=== PATIENT | female | born 1980 | race Caucasian/White ===

== ENCOUNTER 2020-11-12 14:28 | Emergency (ER) | payer BC ==
--- NOTE | 2020-11-12 15:56 | EDM.PDOC ---
ED HPI GENERAL MEDICAL PROBLEM - General Chief Complaint: Lower Extremity Injury/Pain Stated Complaint: FELL DOWN THE STEPS Time Seen by Provider: 11/12/20 14:35 Source of Information: Reports: Patient History Limitations: Reports: No Limitations - History of Present Illness INITIAL COMMENTS - FREE TEXT/NARRATIVE: HISTORY AND PHYSICAL: History of present illness: Patient is a 40-year-old female who presents to the ED today with concern of right ankle injury that occurred just prior to arrival to the emergency room. Patient states that she was doing laundry and was carrying a basket and missed the last 2 steps at the bottom of her stairs. Patient states she twisted her right ankle and states that she caught herself on the door. Patient states that since then she has had pain bearing weight on her right ankle so came to the emergency room for further evaluation. Patient denies any loss of consciousness or any other associated symptoms. Patient denies fever, chills, chest pain, shortness of breath, or cough. Denies headache, neck stiff ness, change in vision, syncope, or near syncope. Denies nausea, vomiting, abdominal pain, diarrhea, constipation, or dysuria. Has not noted any blood in urine or stool. Patient has been eating and drinking appropriately. Review of systems: As per history of present illness and below otherwise all systems reviewed and negative. Past medical history: As per history of present illness and as reviewed below otherwise noncontributory. Surgical history: As per history of present illness and as reviewed below otherwise n oncontributory. Social history: See social history for further information Family history: As per history of present illness and as reviewed below otherwise noncontributory. Physical exam: General: Patient is alert, oriented, and in no acute distress. Patient sitting comfortably on exam table. Vitals stable and reviewed by me. HEENT: Atraumatic, normocephalic, pupils equal and reactive bilaterally, negative for conjunctival pallor or scleral icterus, mucous membranes moist, TMs normal bilaterally, throat clear, neck supple, nontender, trachea midline. No drooling or trismus noted. No meningeal signs. No hot potato voice noted. Lungs: Clear to auscultation, breath sounds equal bilaterally, chest nontender. Heart: S1S2, regular rate and rhythm without overt murmur Abdomen: Soft, nondistended, nontender. Negative for masses or hepatosplenomegaly. Negative for costovertebral tenderness. Pelvis: Stable nontender. Genitourinary: Deferred. Rectal: Deferred. Skin: Intact, warm, dry. No lesions or rashes noted. Extremities: Patient does have edema noted to the right ankle with pain to palpation of the lateral malleolus on the right ankle. Patient does have full range of motion of the right hip and knee and digits of the right lower extremity. Dorsalis pedis and posterior tibial pulses are grossly intact of the right lower extremity with capillary refill less than 2 seconds. Patient does have intact sensation to light and deep touch of the right lower extremity. All compartments are soft of the right lower extremity. Otherwise, atraumatic, negative for cords or calf pain. Neurovascular unremarkable. Neuro: Awake, alert, oriented. Cranial nerves II through XII unremarkable. Cerebellum unremarkable. Motor and sensory unremarkable throughout. Exam nonfocal. Notes: Signs and symptoms are prompt return to the ED thoroughly discussed with patient. Discussed importance for follow-up with an orthopedic provider. Voices understanding and is agreeable to plan of care. Denies any further questions or concerns at this time. Diagnostics: Foot and ankle x-ray Therapeutics: Posterior short splint crutches--Posterior short leg splint and crutches to be used until orthopedic evaluation for fracture stabilization. DX-distal fibula fracture Prescription: None Impression: Distal fibula fracture, right Plan: 1. Rest, ice, elevate the affected extremity. You can apply ice 15 minutes on, 15 minutes off. Keep splint on until orthopedic evaluation. Use crutches until orthopedic and non weight bearing until orthopedic evaluation. 2. Tylenol and/or Ibuprofen as directed for pain management or discomfort. 3. Follow up with the Orthopedic provider as discussed. Return to the ED as needed and as discussed. Definitive disposition and diagnosis as appropriate pending reevaluation and review of above. right ankle Pain Score (Numeric/FACES): 7 - Related Data Allergies Allergy/AdvReac Type Severity Reaction Status Date / Time No Known Allergies Allergy Verified 11/12/20 15:33 Past Medical History - Infectious Disease History Infectious Disease History: Reports: None Social & Family History - Family History Family Medical History: No Pertinent Family History - Tobacco Use Tobacco Use Status *Q: Never Tobacco User - Caffeine Use Caffeine Use: Reports: None - Recreational Drug Use Recreational Drug Use: No Review of Systems - Review of Systems Review Of Systems: Comprehensive ROS is negative, except as noted in HPI. ED EXAM, GENERAL - Physical Exam Exam: See Below (see dictation) Course - Vital Signs Last Recorded V/S: Last Vital Signs Temp 97.0 F 11/12/20 15:34 Pulse 99 11/12/20 17:04 Resp 17 11/12/20 15:34 BP 140/97 H 11/12/20 17:04 Pulse Ox 97 11/12/20 17:04 - Orders/Labs/Meds Orders: Active Orders 24 hr Category Date Time Status DME for Discharge [COMM] Stat Oth 11/12/20 15:59 Ordered Departure - Departure Time of Disposition: 17:15 Disposition: Home, Self-Care 01 Clinical Impression: Fracture of distal fibula Qualifiers: Encounter type: initial encounter Fracture type: closed Fracture morphology: unspecified fracture morphology Laterality: right Qualified Code(s): S82.831A - Other fracture of upper and lower end of right fibula, initial encounter for closed fracture - Discharge Information Instructions: Tibial and Fibular Fractures Referrals: Yadira Raygoza [employer] [Primary Care Provider] - Forms: ED Department Discharge Additional Instructions: The following information is given to patients seen in the emergency department who are being discharged to home. This information is to outline your options for follow-up care. We provide all patients seen in our emergency department with a follow-up referral. The need for follow-up, as well as the timing and circumstances, are variable depending upon the specifics of your emergency department visit. If you don't have a primary care physician on staff, we will provide you with a referral. We always advise you to contact your personal physician following an emergency department visit to inform them of the circumstance of the visit and for follow-up with them and/or the need for any referrals to a consulting specialist. The emergency department will also refer you to a specialist when appropriate. This referral assures that you have the opportunity for follow-up care with a specialist. All of these measure are taken in an effort to provide you with optimal care, which includes your follow-up. Under all circumstances we always encourage you to contact your private physician who remains a resource for coordinating your care. When calling for follow-up care, please make the office aware that this follow-up is from your recent emergency room visit. If for any reason you are refused follow-up, please contact the [facility] Emergency Department at and asked to speak to the emergency department charge nurse. [facility] [address] [place] [address] [address] [facility] Professional [facility] [address] [facility] [place] [address] [address] Quintanilla, Orthopedist [facility] [address] [place] [address] Dr Zhao - Dr Laureano - Dr [facility] [address] [place] [address] [facility] [address] [place] [address] 1. Rest, ice, elevate the affected extremity. You can apply ice 15 minutes on, 15 minutes off. Keep splint on until orthopedic evaluation. Use crutches until orthopedic and non weight bearing until orthopedic evaluation. 2. Tylenol and/or Ibuprofen as directed for pain management or discomfort. 3. Follow up with the Orthopedic provider as discussed. Return to the ED as needed and as discussed. Sepsis Event Note (ED) - Evaluation Sepsis Screening Result: No Definite Risk - Focused Exam Vital Signs: Vital Signs Temp Pulse Resp BP Pulse Ox 11/12/20 17:04 99 140/97 H 97 11/12/20 15:34 97.0 F 104 H 17 143/81 H 97 - My Orders Last 24 Hours: My Active Orders 11/12/20 15:59 DME for Discharge [COMM] Stat - Assessment/Plan Last 24 Hours: My Active Orders 11/12/20 15:59 DME for Discharge [COMM] Stat
--- NOTE | 2020-11-12 16:31 | CR ---
Indication: Pain, fell downstairs Comparison: None available. Technique: AP, Lateral views right foot were obtained Findings: There is no displaced fracture or dislocation. The joint spaces are grossly preserved. There is mild dorsal soft tissue prominence. Impression: Mild dorsal soft tissue prominence without evidence of displaced fracture. Dictated by Domenico Casey MD @ 11/12/2020 4:29:[address] Domenico Casey @ Nov 12 2020 4:29PM
--- NOTE | 2020-11-12 16:33 | CR ---
Indication: Pain, fell downstairs Comparison: None available. Technique: AP, Lateral, and Oblique views right ankle were obtained Findings: There is demonstration of an avulsion fracture of the tip of the fibula. There is no other displaced injury. The ankle mortise is symmetrical. The talar dome is smooth and intact. The joint spaces are otherwise grossly preserved. There is moderate soft tissue swelling. Impression: Minimally displaced fracture of the tip of the fibula with associated soft tissue swelling. Dictated by Domenico Casey MD @ 11/12/2020 4:32:[address] Domenico Casey @ Nov 12 2020 4:32PM
== END 2020-11-12 17:05 | disposition home or self-care (01) ==
LOC: EDBD 14:28 → MW.ED 14:28
DX: S82.831A Other fracture of upper and lower end of right fibula, initial encounter for closed fracture (principal); W10.9XXA Fall (on) (from) unspecified stairs and steps, initial encounter
CPT/HCPCS: 29515; 73610-26-RT; 73610-RT; 73620-26-RT; 73620-RT; 99283; 99283-25